=== PATIENT | female | born 2000 | race Caucasian/White ===

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

== ENCOUNTER → 2022-04-15 | Outpatient (REF) | payer BC | LOC: M SFHCADAM 13:42 | PROVIDERS: ATTEND Physician Assistant | DX: Z53.9 Procedure and treatment not carried out, unspecified reason (principal) ==

== ENCOUNTER → 2023-11-25 | Outpatient (REF) | payer BC ==
[2023-11-25 19:15] LABS: Trichomonas vaginalis (AMP) NOT DETECTED (NEGATIVE)
[2023-11-25 19:38] LABS: GC DNA AMPLIFICATION NEGATIVE (NEGATIVE)
== END ==
LOC: M SFHCADAM 14:13
PROVIDERS: ATTEND Physician Assistant
DX: Z78.9 Other specified health status (principal)

== ENCOUNTER → 2024-03-29 | Outpatient (REF) | payer BC ==
[2024-03-29 18:34] LABS: Trichomonas vaginalis (AMP) NOT DETECTED (NEGATIVE)
[2024-03-29 18:57] LABS: GC DNA AMPLIFICATION NEGATIVE (NEGATIVE)
[2024-04-28 13:26] LABS: HPV APTIMA Detected (Not Detected)
== END ==
LOC: M SFHCADAM 16:59
PROVIDERS: ATTEND Physician Assistant
DX: N72 Inflammatory disease of cervix uteri (principal); Z28.21 Immunization not carried out because of patient refusal; R87.610 Atypical squamous cells of undetermined significance on cytologic smear of cervix (ASC-US); Z12.4 Encounter for screening for malignant neoplasm of cervix
CPT/HCPCS: 87624; 87661; 87810; 87850; G0123

== ENCOUNTER → 2024-11-27 | Outpatient (REF) | payer BC ==
[2024-11-27 18:03] LABS: FREE T4 1.15 NG/DL (0.89-1.76)
== END ==
LOC: M SFHCADAM 11:21
PROVIDERS: ATTEND Physician Assistant
DX: E04.9 Nontoxic goiter, unspecified (principal)